=== PATIENT | female | born 1995 | race Two or more races ===

== ENCOUNTER 2019-03-19 18:34 | Emergency (ER) | payer MEDICAID ==
[~2019-03-19] VITALS: Ht 172.7 cm; Wt 90.7 kg
--- NOTE | 2019-03-19 18:52 | NUR ---
THROAT FEELS TIGHT, UNABLE TO SWALLOW X 1 HOUR, ALSO C/O MIGRAINE HEADACHES. STATES PAIN 9/10. STARTED FEELING THROAT TIGHTNESS AFTER TAKING [place] LAST NIGHT. APPEARS SLIGHTLY LETHARGIC. NO ACUTE DISTRESS NOTED. MADE COMFORTABLE AND READY FOR EVAL.
[2019-03-19] MEDS ORDERED: diphenhydrAMINE HCL 50 MG/ML VIAL IV ONE (19:00)
[2019-03-19] MEDS ORDERED: METOCLOPRAMIDE HCL 10 MG/2 ML VIAL IV ONE (19:00)
[2019-03-19] MEDS ORDERED: DEXAMETHASONE SOD PHOSPHATE 4 MG/ML VIAL IV ONE (19:00)
[2019-03-19] MEDS ORDERED: KETOROLAC TROMETHAMINE INJ 30 MG/ML VIAL IV ONE (19:00)
[2019-03-19] MEDS ORDERED: IV NS 0.9% 1,000 ML BAG IV ONE (19:00)
[2019-03-19] MEDS ORDERED: diphenhydrAMINE HCL 50 MG/ML VIAL ONE (19:07)
[2019-03-19] MEDS ORDERED: KETOROLAC TROMETHAMINE INJ 30 MG/ML VIAL ONE (19:07)
[2019-03-19] MEDS ORDERED: DEXAMETHASONE SOD PHOSPHATE 10 MG/ML VIAL ONE (19:07)
[2019-03-19] MEDS ORDERED: METOCLOPRAMIDE HCL 10 MG/2 ML VIAL ONE (19:08)
--- NOTE | 2019-03-19 19:15 | NUR ---
URINE SENT TO STAT LAB
--- NOTE | 2019-03-19 19:20 | NUR ---
PT IS A HARD STICK
--- NOTE | 2019-03-19 20:05 | NUR ---
IV LINE ESTABLISHED. IVF INFUSING AND MEDS GIVEN. PT RESTING COMFORTABLY WITH LIGHTS OFF. WILL MONITOR ACCORDINGLY.
--- NOTE | 2019-03-19 21:45 | NUR ---
Patient discharged to home in stable condition. Written and verbal after care instructions given. Patient verbalizes understanding of instruction.IV removed. Catheter intact and site benign. Pressure and 4x4 applied to site. No bleeding noted.
[2019-03-19 21:56] VITALS: BP 126/78
== END 2019-03-19 21:45 | disposition home or self-care (01) ==
LOC: ER 18:34
DX: G43.909 Migraine, unspecified, not intractable, without status migrainosus (principal); R11.2 Nausea with vomiting, unspecified
CPT/HCPCS: 84703; 96361; 96374; 96375; 99283; J1100; J1200; J1885; J2765; J7030